=== PATIENT | male | born 1945 | race Caucasian/White ===

== ENCOUNTER → 2020-06-14 14:21 | Outpatient (BNVA) | payer MEDICARE, SELFPAY | PROVIDERS: PCP Internal Medicine; Referring Provider Internal Medicine; Visit Provider Internal Medicine | DX: I48.20 Chronic atrial fibrillation, unspecified (principal); Z95.2 Presence of prosthetic heart valve; Z79.01 Long term (current) use of anticoagulants; Z51.81 Encounter for therapeutic drug level monitoring | CPT/HCPCS: 85610; 99211 ==

== ENCOUNTER → 2020-06-20 09:56 | Outpatient (BNVA) | payer MEDICARE, SELFPAY | PROVIDERS: PCP Internal Medicine; Visit Provider Internal Medicine | DX: I48.20 Chronic atrial fibrillation, unspecified (principal); Z95.2 Presence of prosthetic heart valve; Z51.81 Encounter for therapeutic drug level monitoring; Z79.01 Long term (current) use of anticoagulants | CPT/HCPCS: 85610; 99211 ==

== ENCOUNTER → 2020-06-30 10:16 | Outpatient (BNVA) | payer MEDICARE, SELFPAY | PROVIDERS: PCP Internal Medicine; Visit Provider Internal Medicine | DX: I48.20 Chronic atrial fibrillation, unspecified (principal); Z95.2 Presence of prosthetic heart valve; Z51.81 Encounter for therapeutic drug level monitoring; Z79.01 Long term (current) use of anticoagulants | CPT/HCPCS: 85610; 99211 ==

== ENCOUNTER → 2020-07-07 10:12 | Outpatient (BNVA) | payer MEDICARE, SELFPAY | PROVIDERS: PCP Internal Medicine; Visit Provider Internal Medicine | DX: I48.20 Chronic atrial fibrillation, unspecified (principal); Z95.2 Presence of prosthetic heart valve; Z51.81 Encounter for therapeutic drug level monitoring; Z79.01 Long term (current) use of anticoagulants | CPT/HCPCS: 85610; 99211 ==

== ENCOUNTER → 2020-07-12 10:30 | Outpatient (BNVA) | payer MEDICARE, SELFPAY | PROVIDERS: PCP Internal Medicine; Visit Provider Internal Medicine | DX: I48.20 Chronic atrial fibrillation, unspecified (principal); Z95.2 Presence of prosthetic heart valve; Z51.81 Encounter for therapeutic drug level monitoring; Z79.01 Long term (current) use of anticoagulants | CPT/HCPCS: 85610; 99211 ==

== ENCOUNTER → 2020-07-27 14:01 | Outpatient (BNVA) | payer MEDICARE, SELFPAY | PROVIDERS: PCP Internal Medicine; Visit Provider Internal Medicine | DX: I48.20 Chronic atrial fibrillation, unspecified (principal); Z51.81 Encounter for therapeutic drug level monitoring; Z79.01 Long term (current) use of anticoagulants | CPT/HCPCS: 85610; 99211 ==

== ENCOUNTER 2020-08-20 11:26 | Inpatient (IN) | payer MEDICARE, OTHER, SELFPAY ==
[2020-08-20 11:29] VITALS: BP 145/90; PULSE 103; RESP 20; TEMP 36.6; O2SAT 100; BMI 23.9
[2020-08-20 12:00] VITALS: BP 138/82; PULSE 98; RESP 18; TEMP 36.6; O2SAT 99
--- NOTE | 2020-08-20 12:07 | PC.NURSE ---
PRESENTS WITH WORSENED CHRONIC WOUND ON LLE. DIABETIC. RECEIVING CARE FROM [facility]. PEDAL PULSES + WITH DOPPLER BILAT. APPEARS SHORT OF BREATH ON EXERTION. SPO2 ON RA IN LOW 90S. NO AT HOME O2.
--- NOTE | 2020-08-20 12:09 | US_ITS ---
EXAMINATION: US VENOUS ULTRASOUND WITH DOPPLER LOWER EXTREMITY, LEFT CLINICAL INFORMATION: Left leg pain. COMPARISON: None TECHNIQUE: Ultrasound of the deep veins is performed from the hip to the calf with compression sonography and color and pulse Doppler assessment. Spectral analysis with color-flow imaging is performed. FINDINGS: There is normal venous compression and respiratory variation and augmented flow. The visualized common femoral vein, superficial femoral vein, profunda femoral vein, popliteal vein, and the trifurcation region shows no evidence of deep venous thrombosis. There is no significant popliteal fossa cyst. There are a few scattered lymph nodes in the left groin with the largest left groin lymph node measuring 0.85 x 0.80 cm. US/US venous duplex LE LT IMPRESSION: No DVT demonstrated in the left lower extremity. Small left groin lymph nodes. No Ascencio's cyst.
--- NOTE | 2020-08-20 12:11 | XR_ITS ---
EXAMINATION: XR TIBIA AND FIBULA, LEFT CLINICAL INFORMATION: Infection. Rule out osteomyelitis. COMPARISON: None TECHNIQUE: AP and lateral views of the left tibia and fibula were obtained. FINDINGS: A soft tissue ulcer is noted anteriorly along the distal tibia. No underlying bony abnormality is demonstrated to suggest osteomyelitis. There is extensive vascular calcification. No other abnormality. XR/XR tibia fibula LT 2V IMPRESSION: Soft tissue ulcer in the pretibial region with no bony abnormality demonstrated. Extensive vascular calcification.
--- NOTE | 2020-08-20 12:19 | XR_ITS ---
EXAMINATION: XR CHEST CLINICAL INFORMATION: Shortness of breath. COMPARISON: Chest done on 04/27/2020. TECHNIQUE: Frontal view of the chest was obtained. FINDINGS: Persistent obliteration of the left hemidiaphragm, left lateral CP angle and dense opacification of the left mid to lower lung coffey consistent with stable left-sided pleural parenchymal disease is noted. Patchy airspace disease at right lower lobe of the lung is also noted. The cardiac mediastinal silhouette is enlarged, but stable. Triple lead AICD device is present, appear intact. XR/XR chest 1V IMPRESSION: No significant change since 04/27/2020. The identified persistent left-sided pleural effusion, thickening and underlying nonspecific left lower lobar airspace disease, and patchy airspace disease at right lower lobe of the lung.
--- NOTE | 2020-08-20 12:19 | ECG_ITS ---
Test Reason : LEG PAIN Blood Pressure : / mmHG Vent. Rate : 099 BPM Atrial Rate : 099 BPM P-R Int : 000 ms QRS Dur : 166 ms QT Int : 450 ms P-R-T Axes : 043 -89 078 degrees QTc Int : 577 ms Ventricular-paced rhythm Atrial rhythm is not clear Premature ventricular complexes Abnormal ECG When compared with ECG of 03-MAY-2020 10:28, Vent. rate has increased BY 11 BPM Referred By: Rafael Aguilar Electronically Signed By:SHARI FISHER
[2020-08-20 13:10] LABS: Basophils Percent Auto 0.3 % (0-2); Eosinophils Absolute Auto 0.1 X10*3/uL (0.0-0.4); Hemoglobin 11.7 g/dl (14.0-18.0); Imm Gran Abs Auto 0.01 X10*3/uL (0.00-0.03); Imm Gran Pct Auto 0.2 % (0.0-0.4); Lymphocytes Absolute Auto 0.7 X10*3/uL (1.2-4.9); Lymphocytes Percent Auto 12.1 % (20-40); MANUAL DIFF FLAG NO; Mean Corpuscular HGB Conc 31.6 g/dl (31.0-36.0); Mean Corpuscular Volume 91.6 fL (80-98); Mean Platelet Volume 11.2 fL (9.4-12.4); Monocytes Absolute Auto 0.5 X10*3/uL (0.1-1.2); Monocytes Percent Auto 9.1 % (2-11); Neutrophils Absolute Auto 4.5 X10*3/uL (2.0-8.3); Neutrophils Percent Auto 77.3 % (45-73); Platelet Count 220 X10*3/uL (160-400); Red Blood Count 4.04 X10*6/uL (4.60-5.80); Red Cell Distribution Width 15.3 % (11.0-16.0); White Blood Count 5.8 X10*3/uL (4.8-10.8)
[2020-08-20 13:28] LABS: Lactic Acid 0.9 mmol/L (0.5-2.0)
--- NOTE | 2020-08-20 13:34 | ED.SKABFB ---
HPI - Skin/Abscess/Foreign Bdy General Chief complaint: Skin/Abscess/Foreign Body Stated complaint: ?leg infection Time Seen by Provider: 08/20/20 12:06 History of Present Illness HPI narrative: Patient complains of wound in left lower leg which has been getting red and painful with discharge from the wound over several weeks, no fever no chills, it is difficult to ambulate as it hurts, pain is mostly in front of the leg, there is no calf swelling A visitor to the house noticed the redness and advised he goes to the ER so that is the reason for the visit today He has multiple comorbidities including renal insufficiency diabetes heart disease including valve repair for which he is on Coumadin and pacemaker Related Data Previous Rx's Medication Instructions Recorded blood sugar diagnostic #10 ea 06/09/20 blood sugar diagnostic #10 ea 06/09/20 lancets 28 gauge #100 ea 06/09/20 warfarin 3 mg tablet 3 mg PO DAILY #90 tab 06/14/20 warfarin 4 mg tablet 4 mg PO DAILY #90 tab 06/14/20 tamsulosin 0.4 mg capsule 0.4 mg PO DAILY 90 Days #90 cap 07/21/20 oxycodone-acetaminophen [Percocet] 1 tab PO Q8H PRN #1 tab 08/20/20 Allergies Allergy/AdvReac Type Severity Reaction Status Date / Time No Known Allergies Allergy Verified 07/12/20 10:31 [No Known Allergies*] none Allergy Unknown N/A Uncoded 06/30/20 10:20 Review of Systems Review of Systems: Positive for left leg redness and pain Negatives are no fever no chills no dizziness no headache no neck pain no chest pain no abdominal pain no numbness no weakness, no dysuria, no problems with urination [facility] Past Medical History Attestation statement: The following information was validated with the patient. [facility] Narrative: Patient has renal insufficiency, diabetes, heart disease, takes Coumadin for an artificial valve, last INR was 2 or 3 weeks ago Medical History (Updated 08/20/20 @ 15:39 by [place] Gunn) Blind left eye COVID-19 Diabetes HTN (hypertension) Kidney stone MD (myocardial infarction) Pacemaker Social History Social History Smoking Status: Former smoker Use of substances other than those prescribed or required for medical reasons: No Advance Directives: No Advance Directives Information Provided: Yes Physical Exam Vital Signs: Vital Signs: Last Vital Signs Temp 98.5 F 08/20/20 14:00 Pulse 82 08/20/20 14:00 Resp 20 08/20/20 14:00 BP 141/71 H 08/20/20 14:00 Pulse Ox 95 08/20/20 14:00 Body Mass Index 23.9 Patient is resting comfortably, no acute distress, cooperative and come The head is normocephalic atraumatic The neck is supple The chest is clear to auscultation bilaterally with symmetric equal breath sounds The heart had no obvious murmurs The abdomen was soft and nontender Extremities the left lower extremity pretibial area had some small wounds that are discharging yellowish fluid but no fluctuance no abscess these are surrounded by redness and scabbing the redness does go to the posterior leg, the ankle in the near not affected and have full range of motion, no evidence of any joint infection, no calf swelling There is mild bilateral pedal edema, pulses were not palpable in either foot but the foot was normal color not cold not white, Doppler was checked and pulses were intact in both feet Neuro no focal deficit Course Course Course Narrative: Left and right foot did not have easily palpable pulses so they were checked with Doppler and both had intact pulses as well as normal color of the foot, not cold, no evidence of ischemic foot Ultrasound was negative for DVT, x-ray did not show osteomyelitis, patient was started on antibiotics, case was discussed with hospitalist chanel and was admitted for IV antibiotics for left leg cellulitis MDM - Skin/Abscess/Foreign Bdy Lab Data Attestation: I reviewed the patient's lab results. Lab results narrative: Result diagrams: 08/20/20 13:04 08/20/20 13:04 Labs: Lab Results 08/20/20 08/20/20 08/20/20 Range/Units 13:04 13:04 13:04 WBC 5.8 (4.8-10.8) X10*3/uL RBC 4.04 L (4.60-5.80) X10*6/uL Hgb 11.7 L (14.0-18.0) g/dl Hct 37.0 L (42-52) % MCV 91.6 (80-98) fL MCH 29.0 (27.0-33.0) pg MCHC 31.6 (31.0-36.0) g/dl RDW 15.3 (11.0-16.0) % Plt Count 220 (160-400) X10*3/uL MPV 11.2 (9.4-12.4) fL Immature Gran % (Auto) 0.2 (0.0-0.4) % Neut % (Auto) 77.3 H (45-73) % Lymph % (Auto) 12.1 L (20-40) % Mcleod % (Auto) 9.1 (2-11) % Eos % (Auto) 1.0 (0-4) % Baso % (Auto) 0.3 (0-2) % Lymph # (Auto) 0.7 L (1.2-4.9) X10*3/uL Mcleod # (Auto) 0.5 (0.1-1.2) X10*3/uL Eos # (Auto) 0.1 (0.0-0.4) X10*3/uL Baso # (Auto) 0.0 (0.0-0.2) X10*3/uL Abs Immat Gran (auto) 0.01 (0.00-0.03) X10*3/uL Absolute Neuts (auto) 4.5 (2.0-8.3) X10*3/uL Absolute Nucleated RBC 0.000 (0.0-0.012) X10*3/uL Nucleated RBC % (auto) 0.0 (0.0-0.2) /100WBC PT 63.1 H (10.8-13.0) SEC INR 5.2 H* (0.9-1.1) APTT 68.4 H* (24.1-38.0) SEC Sodium 137 (135-145) mmol/L Potassium 4.9 (3.3-5.1) mmol/l Chloride 103 (96-108) mmol/L Carbon Dioxide 24 (22-29) mmol/L Anion Gap 15 (12-20) BUN 111 H* (9-16) mg/dL Creatinine 3.21 H (0.5-1.4) mg/dL Estim Creat Clear Calc 16.0 Estimated GFR 19 Random Glucose 417 H* (60-115) mg/dL Lactic Acid (0.5-2.0) mmol/L Calcium 8.0 L (8.4-10.2) mg/dL Total Bilirubin 0.4 (0.0-1.0) mg/dL Direct Bilirubin 0.2 (0.0-0.5) mg/dL AST 24 (5-37) U/L ALT 25 (0-40) U/L Alkaline Phosphatase 151 H (39-117) U/L Total Protein 6.4 L (6.5-8.0) g/dL Albumin 3.3 L (3.5-5.0) g/dL Acetone, Qual Negative (Negative) COVID-19 (KHALIF) (Negative) COVID-19 Clin Com 08/20/20 08/20/20 Range/Units 13:04 13:33 WBC (4.8-10.8) X10*3/uL RBC (4.60-5.80) X10*6/uL Hgb (14.0-18.0) g/dl Hct (42-52) % MCV (80-98) fL MCH (27.0-33.0) pg MCHC (31.0-36.0) g/dl RDW (11.0-16.0) % Plt Count (160-400) X10*3/uL MPV (9.4-12.4) fL Immature Gran % (Auto) (0.0-0.4) % Neut % (Auto) (45-73) % Lymph % (Auto) (20-40) % Mcleod % (Auto) (2-11) % Eos % (Auto) (0-4) % Baso % (Auto) (0-2) % Lymph # (Auto) (1.2-4.9) X10*3/uL Mcleod # (Auto) (0.1-1.2) X10*3/uL Eos # (Auto) (0.0-0.4) X10*3/uL Baso # (Auto) (0.0-0.2) X10*3/uL Abs Immat Gran (auto) (0.00-0.03) X10*3/uL Absolute Neuts (auto) (2.0-8.3) X10*3/uL Absolute Nucleated RBC (0.0-0.012) X10*3/uL Nucleated RBC % (auto) (0.0-0.2) /100WBC PT (10.8-13.0) SEC INR (0.9-1.1) APTT (24.1-38.0) SEC Sodium (135-145) mmol/L Potassium (3.3-5.1) mmol/l Chloride (96-108) mmol/L Carbon Dioxide (22-29) mmol/L Anion Gap (12-20) BUN (9-16) mg/dL Creatinine (0.5-1.4) mg/dL Estim Creat Clear Calc Estimated GFR Random Glucose (60-115) mg/dL Lactic Acid 0.9 (0.5-2.0) mmol/L Calcium (8.4-10.2) mg/dL Total Bilirubin (0.0-1.0) mg/dL Direct Bilirubin (0.0-0.5) mg/dL AST (5-37) U/L ALT (0-40) U/L Alkaline Phosphatase (39-117) U/L Total Protein (6.5-8.0) g/dL Albumin (3.5-5.0) g/dL Acetone, Qual (Negative) COVID-19 (KHALIF) Negative (Negative) COVID-19 Clin Com See Note ECG Data Interpretation: EKG was without acute ischemic change, there was a ventricular paced rhythm rate was 99, QT was 450, QRS duration was 166 millisecond Discharge Plan Discharge Clinical Impression: Cellulitis of left leg Patient Disposition: Admitted As Inpatient Prescriptions: New oxycodone-acetaminophen [Percocet] 5-325 mg tablet 1 tab PO Q8H PRN (Reason: pain) Qty: 1 RF: 0 No Action (DME) Freestyle [employer] Strip See Rx Instructions .ROUTE .MEDSUPPLY Qty: 10 RF: 0 (DME) FreeStyle Lite Strips Strip See Rx Instructions .ROUTE .MEDSUPPLY Qty: 10 RF: 0 (DME) lancets [FreeStyle Lancets] 28 gauge misc See Rx Instructions .ROUTE .MEDSUPPLY Qty: 100 RF: 0 tamsulosin 0.4 mg capsule 0.4 mg PO DAILY 90 Days Qty: 90 RF: 0 warfarin 3 mg tablet 3 mg PO DAILY Qty: 90 RF: 0 warfarin 4 mg tablet 4 mg PO DAILY Qty: 90 RF: 0 Referrals: Physician,Unknown [Primary Care Provider] -
[2020-08-20 13:41] LABS: Alanine Aminotransferase 25 U/L (0-40); Albumin Level 3.3 g/dL (3.5-5.0); Alkaline Phosphatase 151 U/L (39-117); Anion Gap 15 (12-20); Aspartate Amino Transferase 24 U/L (5-37); Bilirubin Direct 0.2 mg/dL (0.0-0.5); Bilirubin Total 0.4 mg/dL (0.0-1.0); Blood Urea Nitrogen 111 mg/dL (9-16); Carbon Dioxide 24 mmol/L (22-29); Chloride 103 mmol/L (96-108); Estimated Glomerular Filt Rate 19; Glucose Random 417 mg/dL (60-115); Potassium 4.9 mmol/l (3.3-5.1); Sodium 137 mmol/L (135-145); Total Protein 6.4 g/dL (6.5-8.0)
[2020-08-20 14:00] VITALS: BP 141/71; PULSE 82; RESP 20; TEMP 36.9; O2SAT 95
[2020-08-20 14:00] LABS: COVID-19 Test Negative (Negative); IDNOW Serial# 9DD0AD1C
[2020-08-20 14:20] LABS: Acetone, serum QL Negative (Negative)
[2020-08-20] MEDS: Piperacillin Sodium/Tazobactam 2.25 GM in 0.9 % Sodium Chloride 50 ML IV (14:46)
[2020-08-20 14:48] LABS: Prothrombin Time 63.1 SEC (10.8-13.0)
[2020-08-20 14:53] LABS: INTERNATIONAL NORM RATIO 5.2 (0.9-1.1)
[2020-08-20 16:00] VITALS: BP 157/88; PULSE 68; RESP 22; TEMP 36.9; O2SAT 96
[2020-08-20 16:16] LABS: Glucose Urine UA 250 MG/DL (NEG); Leukocyte Esterase Urine NEG (NEG); Nitrite Urine NEG (NEG); PH 5.5 (5.0-8.0); Specific Gravity - Urine 1.025 (1.005-1.025); Urine Blood 3+ (NEG); Urine Ketones NEG (NEG); Urine Protein 2+ MG/DL (NEG-TRACE)
[2020-08-20 16:17] LABS: Appearance Urine CLEAR; Color Urine YELLOW
--- NOTE | 2020-08-20 16:32 | PC.NURSE ---
IV LEENA PER MD ZAYAS
[2020-08-20 16:36] LABS: Bacteria Urine 1+ /LPF; RBC Urine 50-75 /HPF (0); UACC CULT YES
--- NOTE | 2020-08-20 16:47 | PM.IMHP ---
History of Present Illness Date of Service: 08/20/20 Chief Complaint: left leg redness This is a 74-year-old male with multiple medical issues who presents to the hospital after being brought in by his family for worsening left leg redness. The patient himself has poor vision and is not the greatest of historians and so history is corroborated for with the help of his family and himself. Patient reportedly has had this left leg wound for quite some time which was being monitored by a visiting RN, but it was noticed by grandson's partner, who is a retired machine repairer that the left leg looked worse and so he brought him to the emergency room. The patient himself denies any discomfort that is new in the leg. He denies any fevers or chills. He denies any nausea/vomiting/diarrhea. He denies any chest pain. I spoke with the patient's daughter, Taina @ [phone] who reports that she is the HCP and that the patient is a full code. Review of Systems Review of Systems: General - denies fevers or chills, denies weakness or fatigue HEENT -denies blurred vision, denies headache, denies sore throat Cardiovascular - denies chest pain or palpitations, denies edema Respiratory - denies shortness of breath, coughing, wheezing Gastrointestinal - denies abdominal pain, nausea, vomiting, diarrhea - denies flank pain, denies dysuria, denies frequency or urgency Musculoskeletal - denies back pain, denies hip pain, denies knee pain, denies shoulder pain Neurological - denies any focal weakness or numbness Skin - erythema of the L leg Psychiatric - denies any suicidal ideation, hallucinations, homicidal ideation Endocrinology - denies intolerance to hot / cold temperatures [facility] Medical History (Updated 08/20/20 @ 17:11 by Juan Lang MD) Atrial flutter Blind left eye CAD (coronary artery disease) 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 mellitus Combined systolic and diastolic heart failure Complete heart block COVID-19 Diabetes Dyslipidemia HTN (hypertension) Kidney stone IN (myocardial infarction) Pacemaker Family History (Updated 08/20/20 @ 16:56 by Juan Lang MD) Other Heart disease Surgical History (Updated 08/20/20 @ 17:11 by Juan Lang MD) AICD (automatic cardioverter/defibrillator) present H/O mechanical aortic valve replacement Hx of CABG Social History Smoking Status: Former smoker Use of substances other than those prescribed or required for medical reasons: No Advance Directives: No Advance Directives Information Provided: Yes Meds Allergies Allergy/AdvReac Type Severity Reaction Status Date / Time No Known Allergies Allergy Verified 07/12/20 10:31 [No Known Allergies*] none Allergy Unknown N/A Uncoded 06/30/20 10:20 Physical Exam Vital Signs and Narrative: Vital Signs: Last Vital Signs Temp 98.5 F 08/20/20 16:00 Pulse 68 08/20/20 16:00 Resp 22 H 08/20/20 16:00 BP 157/88 H 08/20/20 16:00 Pulse Ox 96 08/20/20 16:00 Body Mass Index 23.9 Const: Other: Constitutional - Awake and Alert, No apparent distress, unkempt Eyes - PERRLA, EOMI Cardiovascular - RRR Respiratory - Normal lung expansion, Normal respiratory effort, No respiratory distress, CTA bilaterally Gastrointestinal - NT / ND; +BS; No rebound or guarding - No CVA tenderness Extremities - no calf tenderness bilaterally, no swelling Musculoskeletal - Normal inspection, normal ROM Neurological - Alert & oriented x3, No focal deficit Psychological - Appropriate affect Skin: Other: Results Labs CBC and Chem 7: 08/20/20 13:04 08/20/20 13:04 Labs: Laboratory Results - last 24 hr 08/20/20 08/20/20 08/20/20 13:04 13:04 13:04 MCV 91.6 MCH 29.0 MCHC 31.6 RDW 15.3 Plt Count 220 MPV 11.2 Immature Gran % (Auto) 0.2 Neut % (Auto) 77.3 H Lymph % (Auto) 12.1 L [place] % (Auto) 9.1 Eos % (Auto) 1.0 Baso % (Auto) 0.3 Lymph # (Auto) 0.7 L [place] # (Auto) 0.5 Eos # (Auto) 0.1 Baso # (Auto) 0.0 Abs Immat Gran (auto) 0.01 Absolute Neuts (auto) 4.5 Absolute Nucleated RBC 0.000 Nucleated RBC % (auto) 0.0 PT 63.1 H INR 5.2 H* APTT 68.4 H* Anion Gap 15 Estim Creat Clear Calc 16.0 Estimated GFR 19 Random Glucose 417 H* Lactic Acid Calcium 8.0 L Total Bilirubin 0.4 Direct Bilirubin 0.2 AST 24 ALT 25 Alkaline Phosphatase 151 H Total Protein 6.4 L Albumin 3.3 L Urine Color Urine Appearance Urine pH Ur Specific Kila Urine Protein Urine Glucose (UA) Urine Ketones Urine Blood Urine Nitrite Ur Leukocyte Esterase Urine RBC Urine WBC Ur Squamous Epith Cells Urine Bacteria Hyaline Casts Granular Casts Acetone, Qual Negative COVID-19 (KHALIF) COVID-19 Clin Com 08/20/20 08/20/20 08/20/20 13:04 13:33 16:07 MCV MCH MCHC RDW Plt Count MPV Immature Gran % (Auto) Neut % (Auto) Lymph % (Auto) [place] % (Auto) Eos % (Auto) Baso % (Auto) Lymph # (Auto) [place] # (Auto) Eos # (Auto) Baso # (Auto) Abs Immat Gran (auto) Absolute Neuts (auto) Absolute Nucleated RBC Nucleated RBC % (auto) PT INR APTT Anion Gap Estim Creat Clear Calc Estimated GFR Random Glucose Lactic Acid 0.9 Calcium Total Bilirubin Direct Bilirubin AST ALT Alkaline Phosphatase Total Protein Albumin Urine Color YELLOW Urine Appearance CLEAR Urine pH 5.5 Ur Specific Kila 1.025 Urine Protein 2+ H Urine Glucose (UA) 250 H Urine Ketones NEG Urine Blood 3+ H Urine Nitrite NEG Ur Leukocyte Esterase NEG Urine RBC 50-75 H Urine WBC 5-9 H Ur Squamous Epith Cells NONE Urine Bacteria 1+ Hyaline Casts 1-4 Granular Casts 5-9 Acetone, Qual COVID-19 (KHALIF) Negative COVID-19 Clin Com See Note Imaging Radiologist's Impressions: Impressions Venous Duplex 08/20/20 12:09 IMPRESSION: No DVT demonstrated in the left lower extremity. Small left groin lymph nodes. No Ascencio's cyst. Tibia/Fibula X-Ray 08/20/20 12:11 IMPRESSION: Soft tissue ulcer in the pretibial region with no bony abnormality demonstrated. Extensive vascular calcification. Chest X-Ray 08/20/20 12:19 IMPRESSION: No significant change since 04/27/2020. The identified persistent left-sided pleural effusion, thickening and underlying nonspecific left lower lobar airspace disease, and patchy airspace disease at right lower lobe of the lung. Assessment and Plan (1) Cellulitis of left leg: Status: Acute This is a 74-year-old male with multiple medical issues who presents to the hospital brought in by his family after they noticed worsening of his left leg erythema. He is admitted for further workup. 1. Left lower extremity chronic wound with minor surrounding cellulitis given zosyn in the ED, vancomyin ordered -- not needed at this time use doxy given advanced CKD and no evidence of sepsis at this time Doxy 100mg IV BID wound care consult 2. SHELBIE on CKD, stage 4 suspect pre-renal will give gentle hydration over night and recheck labs in the AM 3. Supratherapeutic INR, mechanical aortic valve hold coumadin check INR tomorrow 4. Hyperglycemia, uncontrolled DM unclear what meds the patient is one will need to call his pharmacy tomorrow as the family does not know either (d/w the daughter) 5. Moderate Protein Calorie malnurtion nutrition consult 6. History of CHF, diastolic/systolic gentle hydration Full Code (per daughter) Daughter reports she is HCP
[2020-08-20] MEDS: Doxycycline Hyclate 100 MG in 0.9 % Sodium Chloride 250 ML 166.67 MG IV (18:43)
[2020-08-20 19:05] LABS: Glucose, Whole Blood 342 mg/dL (60-115)
--- NOTE | 2020-08-20 19:08 | PC.NURSE ---
PT RESTING COMFORTABLY IN STRETCHER, AWAITING BED ASSIGNMENT ATTEMPTED COMPLETION OF MED REC, PT UNABLE TO CONFIRM CURRENT RXS. CALLED SISTER ALLAN [phone], ALSO UNABLE TO PROVIDE.
[2020-08-20 20:53] LABS: Glucose, Whole Blood 295 mg/dL (60-115)
[2020-08-20] MEDS: Insulin Lispro 100 UNIT/ML 3 ML VIAL SUBCUT (21:13)
[2020-08-20] MEDS: 0.9 % Sodium Chloride 1,000 ML 80 ML IVCONT (23:11)
--- NOTE | 2020-08-20 23:11 | PC.NURSE ---
Patient medicated per emar as noted. Patient wondering when he is getting a bed. Patient settled in for the night.
[2020-08-20 23:17] VITALS: BP 138/61; PULSE 96; RESP 18; O2SAT 96
[2020-08-21] MEDS: 0.9 % Sodium Chloride Flush 3 ML SYRINGE IVFLUSH (00:43)
[2020-08-21 04:00] VITALS: BP 132/67; PULSE 81; RESP 20; O2SAT 96
[2020-08-21] MEDS: Doxycycline Hyclate 100 MG in 0.9 % Sodium Chloride 250 ML 166.7 MG IV (05:47)
[2020-08-21 06:00] VITALS: BP 143/77; PULSE 91; RESP 15; O2SAT 93
[2020-08-21 06:39] LABS: MANUAL DIFF FLAG NO
[2020-08-21 06:40] LABS: Basophils Percent Auto 0.4 % (0-2); Eosinophils Absolute Auto 0.1 X10*3/uL (0.0-0.4); Eosinophils Percent Auto 1.5 % (0-4); Hematocrit 38.8 % (42-52); Hemoglobin 12.3 g/dl (14.0-18.0); Imm Gran Abs Auto 0.02 X10*3/uL (0.00-0.03); Imm Gran Pct Auto 0.3 % (0.0-0.4); Lymphocytes Absolute Auto 0.9 X10*3/uL (1.2-4.9); Lymphocytes Percent Auto 13.1 % (20-40); Mean Corpuscular HGB Conc 31.7 g/dl (31.0-36.0); Mean Corpuscular Volume 91.5 fL (80-98); Mean Platelet Volume 10.6 fL (9.4-12.4); Monocytes Absolute Auto 0.8 X10*3/uL (0.1-1.2); Neutrophils Absolute Auto 5.1 X10*3/uL (2.0-8.3); Neutrophils Percent Auto 73.7 % (45-73); Platelet Count 226 X10*3/uL (160-400); Red Blood Count 4.24 X10*6/uL (4.60-5.80); Red Cell Distribution Width 15.3 % (11.0-16.0); White Blood Count 6.9 X10*3/uL (4.8-10.8)
[2020-08-21 07:06] LABS: INTERNATIONAL NORM RATIO 4.3 (0.9-1.1); Prothrombin Time 52.4 SEC (10.8-13.0)
[2020-08-21 07:10] LABS: Anion Gap 15 (12-20); Blood Urea Nitrogen 108 mg/dL (9-16); Calcium 7.9 mg/dL (8.4-10.2); Carbon Dioxide 21 mmol/L (22-29); Chloride 106 mmol/L (96-108); Creatinine Clr Calc Pharmacy 16.8; Estimated Glomerular Filt Rate 20; Glucose Random 240 mg/dL (60-115); Potassium 4.5 mmol/l (3.3-5.1); Sodium 137 mmol/L (135-145)
[2020-08-21] MEDS: Insulin Lispro 100 UNIT/ML 3 ML VIAL SUBCUT ×3 (07:37→21:48)
--- NOTE | 2020-08-21 07:53 | PC.NURSE ---
report taken from tenisha rodriguez pt sitting up in bed, mainly concerned about food and whether its cold or not. pt has iv dressing soiled and falling off, pt tangled in linens and wires, medicated per emar, eating breakfast, ambulated to commode on own. pt is impulsive and is not patient for staff assistance.
[2020-08-21 08:01] LABS: Glucose, Whole Blood 206 mg/dL (60-115)
[2020-08-21] MEDS: 0.9 % Sodium Chloride 1,000 ML 80 ML IVCONT ×2 (09:02→19:23)
[2020-08-21 11:20] VITALS: TEMP 36.6
--- NOTE | 2020-08-21 14:58 | HO.PM.IMPN ---
Subjective Subjective Date of Service: 08/21/20 Interval History: seen and examined feeling better denies leg pain ROS General - no fevers or chills Cardiovascular - no chest pain Respiratory - no shortness of breath or cough Abdominal- no abdominal pain, nausea, vomiting, diarrhea Physical Exam Vital Signs: Vital Signs: Last Vital Signs Temp 97.8 F 08/21/20 11:20 Pulse 91 08/21/20 06:00 Resp 15 08/21/20 06:00 BP 143/77 H 08/21/20 06:00 Pulse Ox 93 08/21/20 06:00 Body Mass Index 23.9 Const: Other: Constitutional - Awake and Alert, No apparent distress, unkempt Eyes - PERRLA, EOMI Cardiovascular - RRR Respiratory - Normal lung expansion, Normal respiratory effort, No respiratory distress, CTA bilaterally Gastrointestinal - NT / ND; +BS; No rebound or guarding - No CVA tenderness Extremities - no calf tenderness bilaterally, no swelling Musculoskeletal - Normal inspection, normal ROM Neurological - Alert & oriented x3, No focal deficit Psychological - Appropriate affect Objective Data Current Medications Generic Name Dose Route Start Last Admin Trade Name Freq PRN Reason Stop Dose Admin Acetaminophen 650 mg 08/20/20 20:23 Acetaminophen 325 Mg Tablet PO Q6H PRN Pain, Mild (Pain Scale 1-3) Doxycycline Hyclate 100 mg/ 250 mls @ 166.67 mls/hr 08/20/20 18:00 08/21/20 07:37 Sodium Chloride IV Infused Q12H MARCE Infusion Sodium Chloride 1,000 mls @ 80 mls/hr 08/20/20 20:23 08/21/20 09:02 Ns IVCONT 80 mls/hr .[id number] MARCE Administration Insulin Human Lispro 0 unit 08/20/20 21:00 08/21/20 13:11 Insulin Lispro 100 Unit/Ml 3 Ml Vial SUBCUT 2 unit QIDACHS MARCE Administration Protocol Ondansetron HCl 4 mg 08/20/20 20:23 Ondansetron Hcl 4 Mg/2 Ml Vial IVPUSH Q8H PRN Nausea and Vomiting Pharmacy Consult 1 each 08/20/20 14:11 Consult Rx Vancomycin Dosing MISCELLANE DAILY PRN Consult order Sodium Chloride 3 ml 08/21/20 00:00 08/21/20 07:38 0.9 % Sodium Chloride Flush 3 Ml Syringe IVFLUSH Not Given QSHIFT MARCE Labs CBC & Chem 7: 08/21/20 06:33 08/21/20 06:33 Microbiology Microbiology Results: Microbiology 08/20/20 15:24 Leg Left Gram Stain - Final 08/20/20 15:24 Leg Left Routine Culture - Preliminary Staphylococcus aureus 08/20/20 16:38 Urine clean catch - Clean Catch Midstream Urine Culture - Preliminary No growth to date. Assessment and Plan (1) Cellulitis of left leg: Status: Acute Assessment and Plan: This is a 74-year-old male with multiple medical issues who presents to the hospital brought in by his family after they noticed worsening of his left leg erythema. He is admitted for further workup. 1. Left lower extremity chronic wound with minor surrounding cellulitis cellulitis improving await wound care consult continue doxycyline 2. SHELBIE on CKD, stage 4 improving with gentle hydration continue until tomorrow and reasess 3. Supratherapeutic INR, mechanical aortic valve INR downtrending hold coumadin today anticipate restarting it by tomorrow 4. Hyperglycemia, uncontrolled DM not on any meds at home apparently check a1c 5. Moderate Protein Calorie malnurtion nutrition consult supplements 6. History of CHF, diastolic/systolic coreg hold bumex reassess tomorrow Full Code (per daughter) Daughter reports she is HCP DVT ppt, coumadin
[2020-08-21 15:50] LABS: Glucose, Whole Blood 192 mg/dL (60-115)
[2020-08-21 17:20] LABS: Estimated Average Glucose 286 mg/dL; Hemoglobin A1c % 11.6 %
--- NOTE | 2020-08-21 17:25 | PC.NURSE ---
pt moved to [facility], awaiting bed assignment.
--- NOTE | 2020-08-21 17:29 | PC.NURSE ---
first call for report unsuccessful
--- NOTE | 2020-08-21 18:19 | PC.NURSE ---
report given to s3 jennifer sullivan
[2020-08-21] MEDS: Doxycycline Hyclate 100 MG in 0.9 % Sodium Chloride 250 ML 166.67 MG IV (19:22)
[2020-08-21 21:28] LABS: Glucose, Whole Blood 156 mg/dL (60-115)
[2020-08-21 21:38] VITALS: BP 141/3; PULSE 80; RESP 19; TEMP 36.6; O2SAT 94
[2020-08-21] MEDS: carvediloL 3.125 MG TABLET PO (21:48)
[2020-08-21 23:32] VITALS: BP 137/72; PULSE 52; RESP 20; TEMP 36.6; O2SAT 94
[2020-08-22] MEDS: Doxycycline Hyclate 100 MG in 0.9 % Sodium Chloride 250 ML 166.67 MG IV (05:49)
[2020-08-22] MEDS: 0.9 % Sodium Chloride 1,000 ML 80 ML IVCONT (05:53)
[2020-08-22 06:56] LABS: INTERNATIONAL NORM RATIO 3.2 (0.9-1.1); Prothrombin Time 38.6 SEC (10.8-13.0)
[2020-08-22 07:30] LABS: Anion Gap 18 (12-20); Blood Urea Nitrogen 105 mg/dL (9-16); Calcium 7.7 mg/dL (8.4-10.2); Carbon Dioxide 18 mmol/L (22-29); Chloride 109 mmol/L (96-108); Creatinine Clr Calc Pharmacy 17.5; Estimated Glomerular Filt Rate 21; Glucose Random 95 mg/dL (60-115); Potassium 4.7 mmol/l (3.3-5.1); Sodium 140 mmol/L (135-145)
[2020-08-22 07:35] VITALS: BP 153/80; PULSE 86; RESP 18; TEMP 36.1; O2SAT 98
[2020-08-22 07:45] LABS: Glucose, Whole Blood 84 mg/dL (60-115)
[2020-08-22] MEDS: Tamsulosin HCL 0.4 MG CAPSULE PO (07:45)
[2020-08-22] MEDS: Atorvastatin Calcium 80 MG TABLET PO (07:45)
[2020-08-22 07:46] VITALS: BP 153/80; PULSE 86
[2020-08-22] MEDS: carvediloL 3.125 MG TABLET PO (07:46)
--- NOTE | 2020-08-22 08:38 | HO.WOUNDCONS ---
History of Present Illness Data of Consult Service Date: 08/22/20 Requesting physician: Juan Lang Primary Care Provider: Unknown Physician HPI Reason for consult: left leg wound 74-year-old male without clear history of chronic wound care. Left leg wound present, anterior and posterior about the calf, times months. Became reddened and sought emergency treatment. On doxycycline by hospital staff. History of CAD, CKD4, CHF. Also has had cellulitis of this left lower extremity in the past. Arterial studies do not appear to be his dorsally completed. Some pain. No fever. 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 Complete heart block COVID-19 Diabetes Dyslipidemia HTN (hypertension) Kidney stone [place] (myocardial infarction) Pacemaker Family History (Updated 08/20/20 @ 16:56 by Juan Lang MD) Other Heart disease Surgical History (Updated 08/20/20 @ 17:11 by Juan Lang MD) AICD (automatic cardioverter/defibrillator) present H/O mechanical aortic valve replacement Hx of CABG Social History Household Members: Family Housing: House Do you presently have visiting nurse or other home services: No Smoking Status: Former smoker Use of substances other than those prescribed or required for medical reasons: No Currently Displaying Signs/Symptoms of Drug Intoxication Withdrawal: No Have you been hit, kicked, punched, or otherwise hurt by someone within the past year? If so, by whom?: No Do you feel safe in your current relationship?: No Current Relationship Is there a partner from a previous relationship who is making you feel unsafe now?: No Are you made to feel afraid or neglected: No Advance Directives: No Advance Directives Information Provided: Yes Do you have thoughts of harming others: None Do you have a plan to hurt others: No Plan Recently lost weight without trying: No Meds Allergies Allergy/AdvReac Type Severity Reaction Status Date / Time No Known Allergies Allergy Verified 07/12/20 10:31 [No Known Allergies*] none Allergy Unknown N/A Uncoded 06/30/20 10:20 Home Medications Medication Instructions Recorded Confirmed Type atorvastatin 1 tab PO DAILY 08/20/20 08/20/20 History bumetanide 1 tab PO DAILY 08/20/20 08/20/20 History carvedilol 1 tab PO BID 08/20/20 08/20/20 History tamsulosin 1 cap PO DAILY 08/20/20 08/20/20 History warfarin 1 tab PO DAILY 08/20/20 08/20/20 History Physical Exam Vital Signs and Narrative: Vital Signs: Last Vital Signs Temp 97.0 F 08/22/20 07:35 Pulse 86 08/22/20 07:46 Resp 18 08/22/20 07:35 BP 153/80 H 08/22/20 07:46 Pulse Ox 98 08/22/20 07:35 Body Mass Index 23.9 Pleasant, cooperative no acute distress. Vital signs are stable. Respirations are nonlabored. No diaphoresis. Distal pulses are not palpable at PT/DP another there. Doppler signals are noted in the record of this hospitalization. Anterior santos wound is laden adherent debris. Opening appears to be partial thickness. An estimated 1 cm squared of open wound anteriorly, however debridement would be required for full measurement and depth assessment. Posterior calf wound 2 cm squared, roughly. Surrounding erythema and edema suggest active cellulitis. Moderate warmth. No edema the lower extremity. Leg appears slightly atrophic. Results Labs CBC and Chem 7: 08/21/20 06:33 08/22/20 05:53 Labs: Laboratory Results - last 24 hr 08/21/20 08/21/20 08/21/20 06:42 13:01 21:24 PT INR Anion Gap Estim Creat Clear Calc Estimated GFR POC Glucose 192 H 156 H Random Glucose Estimat Average Glucose 286 Hemoglobin A1c % 11.6 Calcium 08/22/20 08/22/20 08/22/20 05:53 05:53 07:37 PT 38.6 H D INR 3.2 H Anion Gap 18 Estim Creat Clear Calc 17.5 Estimated GFR 21 POC Glucose 84 Random Glucose 95 D Estimat Average Glucose Hemoglobin A1c % Calcium 7.7 L Assessment and Plan (1) Cellulitis of left leg: Start date: 08/22/20 Problem details: With open wounds Status: Acute Culture predominantly showing pencillin resistant staph for which doxycyline appears appropriate, along with CKD4 history. XR not showing bone involvement. Consider outpatient arterial studies to support wound healing once infection is completely cleared. In the meantime, topical TRIAD cream twice daily applied liberally and circumferentially to the wounds, covered with DCD would help loosen adherent debris and support healing. Thank you for allowing us to participate in your patient's care. (2) 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 mellitus: Status: Acute
--- NOTE | 2020-08-22 09:03 | P.CDIC_ITS ---
CDI Concurrent Query Service Date: 08/31/20 Documentation Clarification: Please clarify if you are treating a proba ble/suspected/likely or confirmed: Acute Cellulitis left leg due to Diabetes Mellitus Acute Cellulitis left leg not due to Diabetes Mellitus Provider Response: Other Other Diagnosis: cellulitis due to diabetes PLEASE DO NOT DELETE/MODIFY EXISTING CONTENT Additional information is needed in order to code to the highest accuracy and appropriate Severity of Illness (SOI). Please clarify the information noted below in your progress notes and discharge summary. Risk Factors/Clinical Indicators/Treatments 74 year old male admitted with left lower leg Acute Cellulitis PMH: Diabetes Mellitus, HTN, NC, CAD, CHF, Atrial Flutter, CKD4 Wound consult pending CDS: Kristie Spicer RN Contact Number: [phone] Please Review the information above and exercise your independent professional judgment in responding to the query. If you concur, pleas document in the PROGRESS NOTES and DISCHARGE SUMMARY. If you do not agree with the query, please document in the query above. THIS QUERY IS PART OF THE PERMANENT MEDICAL RECORD
[2020-08-22 10:06] VITALS: BMI 23.9
--- NOTE | 2020-08-22 10:10 | MHC.CLN ---
RE: CONSULT RECOMMEND 1500DM 2GM NA DIET R/T DX DM AND CAD PT TAKES NO DM MEDS AT HOME NOTED AIC 11.6% WILL EDUCATE ON BS CONTROL AND WOUND HEALING-SEE TEACHING RECORD WILL START JENNIFER AND GLUCERNA TO SUPPORT WOUND HEALING SEE ALSO CLINICAL NUTRITION ASSESSMENT
--- NOTE | 2020-08-22 10:20 | MHC.CM.PN ---
pt is active with [facility] will have own transportaion home..hcp on file..?need for pt eval prior to dc
[2020-08-22 11:01] VITALS: BP 134/69; PULSE 67; RESP 18; TEMP 36.3; O2SAT 94
[2020-08-22 11:42] LABS: Glucose, Whole Blood 109 mg/dL (60-115)
--- NOTE | 2020-08-22 12:58 | MHC.CM.PN ---
spoke with nasir bautista [address] [place] [address] who reports that her sister lives upstairs from pt in a 2 family she will contact her sister and have her call us garfield perez phone is [phone] ,gave number to dr cedillo as well
--- NOTE | 2020-08-22 13:43 | P.DS_ITS ---
DS: Providers Provider Date of admission: 08/20/20 16:33 Primary care physician: Unknown Physician Consults: 08/20/20 16:34 Consult to Wound Care Provider Routine Consulting Provider: [facility] Wound Care Management Reason for consultation: left leg wound DS: Diagnosis Discharge Diagnosis (1) Cellulitis of left leg: Status: Acute (2) 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 mellitus: Status: Acute DS: Medications Discharge Medications Home Medications: Home Medications Medication Instructions Recorded Confirmed atorvastatin 1 tab PO DAILY 08/20/20 08/20/20 bumetanide 1 tab PO DAILY 08/20/20 08/20/20 carvedilol 1 tab PO BID 08/20/20 08/20/20 tamsulosin 1 cap PO DAILY 08/20/20 08/20/20 warfarin 1 tab PO DAILY 08/20/20 08/20/20 Previous Rx's Medication Instructions Recorded blood sugar diagnostic #10 ea 06/09/20 lancets 28 gauge #100 ea 06/09/20 oxycodone-acetaminophen [Percocet] 1 tab PO Q8H PRN #1 tab 08/20/20 doxycycline hyclate 100 mg PO BID #14 cap 08/22/20 insulin lispro [Humalog U-100 1 sliding scale dose SUBCUT 08/22/20 Insulin] QIDACHS #10 ml MDD 20 units daily DS: Summary Hospital Course Hospital Course: Hospital course Chief Complaint: left leg redness This is a 74-year-old male with multiple medical issues who presents to the hospital after being brought in by his family for worsening left leg redness. The patient himself has poor vision and is not the greatest of historians and so history is corroborated for with the help of his family and himself. Patient reportedly has had this left leg wound for quite some time which was being monitored by a visiting RN, but it was noticed by grandson's partner, who is a retired production pattern maker that the left leg looked worse and so he brought him to the emergency room. The patient himself denies any discomfort that is new in the leg. He denies any fevers or chills. He denies any nausea/vomiting/diarrhea. He denies any chest pain. 74-year-old male with multiple medical issues who presents to the hospital brought in by his family after they noticed worsening of his left leg erythema. 1. Left lower extremity chronic wound with minor surrounding cellulitis due to diabetes mellitus uncontrolled, patient responded well to doxycycline to seen by wound care they recommended treatment with TRIAD covered with DSD, patient has VNA services at home 2. SHELBIE on CKD, stage 4 Kidney function close to baseline recommend continued close outpatient renal follow-up 3. Supratherapeutic INR, mechanical aortic valve INR 3.2 this a.m. will continue to hold Coumadin today recommend to check PT INR at a.m. and resume Coumadin once INR below 3 and to have close PT INR follow-up while on antibiotic 4. Hyperglycemia, uncontrolled DM hemoglobin A1c greater than 11 patient not on insulin is spoke with patient's daughter Taina and informed her about patient's high blood sugars she will see patient's primary care physician patient was scheduled to be on insulin but has not yet started patient being discharged on insulin sliding scale 5. Moderate Protein Calorie malnurtion Recommend protein supplement 6. History of CHF, diastolic/systolic Resume home medication including Bumex and Coreg and have close follow-up with Nephrology and PCP spoke with the patient's daughter, Taina @ [phone] who is the HCP informed her about patient's multiple issues including requirement for close PT INR follow-up elevated blood sugars and chronic kidney disease she is aware of all these issues and willing to aggressively participate in his care patient has VNA services at home recommended to have PT INR monitored by VNA as well as renal function and to start insulin treatment. Time Spent with Patient Time attestation: Total time spent providing and/or coordinating discharge services: Physical Exam Vital Signs: Vital Signs: Last Vital Signs Temp 97.3 F 08/22/20 11:01 Pulse 67 08/22/20 11:01 Resp 18 08/22/20 11:01 BP 134/69 08/22/20 11:01 Pulse Ox 94 08/22/20 11:01 Body Mass Index 23.9 Constitutional - Awake and Alert, No apparent distress Neck is supple Cardiovascular - RRR Respiratory -clear, No respiratory distress Gastrointestinal - soft nontender bowel sounds audible Extremities - redness and swelling left lower extremities improving, no drainage, superficial abrasion/wound looking better. Neurological - Alert & oriented x3, No focal deficit Psychological - Appropriate affect DS: Data Data Completed and Pending Labs on day of discharge: Laboratory Last Values WBC 6.9 X10*3/uL (4.8-10.8) 08/21/20 06:33 RBC 4.24 X10*6/uL (4.60-5.80) L 08/21/20 06:33 Hgb 12.3 g/dl (14.0-18.0) L 08/21/20 06:33 Hct 38.8 % (42-52) L 08/21/20 06:33 MCV 91.5 fL (80-98) 08/21/20 06:33 MCH 29.0 pg (27.0-33.0) 08/21/20 06:33 MCHC 31.7 g/dl (31.0-36.0) 08/21/20 06:33 RDW 15.3 % (11.0-16.0) 08/21/20 06:33 Plt Count 226 X10*3/uL (160-400) 08/21/20 06:33 MPV 10.6 fL (9.4-12.4) 08/21/20 06:33 Immature Gran % (Auto) 0.3 % (0.0-0.4) 08/21/20 06:33 Neut % (Auto) 73.7 % (45-73) H 08/21/20 06:33 Lymph % (Auto) 13.1 % (20-40) L 08/21/20 06:33 [place] % (Auto) 11.0 % (2-11) 08/21/20 06:33 Eos % (Auto) 1.5 % (0-4) 08/21/20 06:33 Baso % (Auto) 0.4 % (0-2) 08/21/20 06:33 Lymph # (Auto) 0.9 X10*3/uL (1.2-4.9) L 08/21/20 06:33 [place] # (Auto) 0.8 X10*3/uL (0.1-1.2) 08/21/20 06:33 Eos # (Auto) 0.1 X10*3/uL (0.0-0.4) 08/21/20 06:33 Baso # (Auto) 0.0 X10*3/uL (0.0-0.2) 08/21/20 06:33 Abs Immat Gran (auto) 0.02 X10*3/uL (0.00-0.03) 08/21/20 06:33 Absolute Neuts (auto) 5.1 X10*3/uL (2.0-8.3) 08/21/20 06:33 Absolute Nucleated RBC 0.000 X10*3/uL (0.0-0.012) 08/21/20 06:33 Nucleated RBC % (auto) 0.0 /100WBC (0.0-0.2) 08/21/20 06:33 PT 38.6 SEC (10.8-13.0) H D 08/22/20 05:53 INR 3.2 (0.9-1.1) H 08/22/20 05:53 APTT 68.4 SEC (24.1-38.0) H* 08/20/20 13:04 Sodium 140 mmol/L (135-145) 08/22/20 05:53 Potassium 4.7 mmol/l (3.3-5.1) 08/22/20 05:53 Chloride 109 mmol/L (96-108) H 08/22/20 05:53 Carbon Dioxide 18 mmol/L (22-29) L 08/22/20 05:53 Anion Gap 18 (12-20) 08/22/20 05:53 BUN 105 mg/dL (9-16) H* 08/22/20 05:53 Creatinine 2.93 mg/dL (0.5-1.4) H 08/22/20 05:53 Estim Creat Clear Calc 17.5 08/22/20 05:53 Estimated GFR 21 08/22/20 05:53 POC Glucose 109 mg/dL (60-115) 08/22/20 11:04 Random Glucose 95 mg/dL (60-115) D 08/22/20 05:53 Estimat Average Glucose 286 mg/dL 08/21/20 06:42 Hemoglobin A1c % 11.6 % 08/21/20 06:42 Lactic Acid 0.9 mmol/L (0.5-2.0) 08/20/20 13:04 Calcium 7.7 mg/dL (8.4-10.2) L 08/22/20 05:53 Total Bilirubin 0.4 mg/dL (0.0-1.0) 08/20/20 13:04 Direct Bilirubin 0.2 mg/dL (0.0-0.5) 08/20/20 13:04 AST 24 U/L (5-37) 08/20/20 13:04 ALT 25 U/L (0-40) 08/20/20 13:04 Alkaline Phosphatase 151 U/L (39-117) H 08/20/20 13:04 Total Protein 6.4 g/dL (6.5-8.0) L 08/20/20 13:04 Albumin 3.3 g/dL (3.5-5.0) L 08/20/20 13:04 Urine Color YELLOW 08/20/20 16:07 Urine Appearance CLEAR 08/20/20 16:07 Urine pH 5.5 (5.0-8.0) 08/20/20 16:07 Ur Specific [place] 1.025 (1.005-1.025) 08/20/20 16:07 Urine Protein 2+ MG/DL (NEG-TRACE) H 08/20/20 16:07 Urine Glucose (UA) 250 MG/DL (NEG) H 08/20/20 16:07 Urine Ketones NEG MG/DL (NEG) 08/20/20 16:07 Urine Blood 3+ (NEG) H 08/20/20 16:07 Urine Nitrite NEG (NEG) 08/20/20 16:07 Ur Leukocyte Esterase NEG (NEG) 08/20/20 16:07 Urine RBC 50-75 /HPF (0) H 08/20/20 16:07 Urine WBC 5-9 /HPF (0-4) H 08/20/20 16:07 Ur Squamous Epith Cells NONE /LPF 08/20/20 16:07 Urine Bacteria 1+ /LPF 08/20/20 16:07 Hyaline Casts 1-4 /LPF 08/20/20 16:07 Granular Casts 5-9 /LPF 08/20/20 16:07 Acetone, Qual Negative (Negative) 08/20/20 13:04 COVID-19 (KHALIF) Negative (Negative) 08/20/20 13:33 COVID-19 Clin Com See Note 08/20/20 13:33 Preliminary micro results at discharge 08/20/20 13:33 Blood Culture - Preliminary Blood - Venous No growth after 24 hours. 08/20/20 13:04 Blood Culture - Preliminary Blood - Venous No growth after 24 hours. Discharge Plan Discharge Patient Disposition: Home Health Service Referrals: [facility] [Outside] Physician,Unknown [Primary Care Provider] - Discharge Medications: New oxycodone-acetaminophen [Percocet] 5-325 mg tablet 1 tab PO Q8H PRN (Reason: pain) Qty: 1 RF: 0 insulin lispro [Humalog U-100 Insulin] 100 unit/mL Solution 1 sliding scale dose subcut QIDACHS MDD 20 units daily Qty: 10 RF: 0 doxycycline hyclate 100 mg capsule 100 mg PO BID Qty: 14 RF: 0 Continued atorvastatin 80 mg tablet 1 tab PO DAILY RF: 0 bumetanide 2 mg tablet 1 tab PO DAILY RF: 0 carvedilol 3.125 mg tablet 1 tab PO BID RF: 0 tamsulosin 0.4 mg capsule 1 cap PO DAILY RF: 0 Held warfarin 4 mg tablet 1 tab PO DAILY RF: 0 Hold Instructions: Resume on 08/23/20. Hold Coumadin today check PT INR tomorrow morning August 23 and resume Coumadin if INR below 3 No Action (DME) Freestyle Insu[employer]x Strip See Rx Instructions .ROUTE .MEDSUPPLY Qty: 10 RF: 0 (DME) lancets [FreeStyle Lancets] 28 gauge misc See Rx Instructions .ROUTE .MEDSUPPLY Qty: 100 RF: 0 Discharge Orders: Discharge Order (Routine); Ordered 08/22/20 Ordered By: Celsa Schuster Diet: diabetic diet and low salt diet Visit Report Forms: Patient Portal Discharge page Care Plan Goals: Follow blood sugars before meals and at bedtime and maintain a diary of blood sugars and follow-up with primary care physician, hold Coumadin today and check PT INR tomorrow, use triad cream to left leg and cover with DSD Health Concerns: Elevated blood sugar Plan of Treatment: Need close outpatient follow-up with primary care physician visiting nurses
[2020-08-22 16:00] VITALS: O2SAT 95
[2020-08-22 16:04] LABS: Glucose, Whole Blood 170 mg/dL (60-115)
[2020-08-25 15:14] LABS: Partial Thromboplastin Time 68.4 SEC (24.1-38.0)
== END 2020-08-22 16:10 | disposition home health service (06) | DRG 638 ==
LOC: HO.ED 17:21 → HO.S3 08-21 16:41 → HO.IMC 08-21 22:40
PROVIDERS: Physician Assistant Medical; Admitting Provider Family Medicine; Emergency Provider Emergency Medicine; PCP Internal Medicine; Visit Provider Hospitalist
DX: E10.628 Type 1 diabetes mellitus with other skin complications (principal); L03.116 Cellulitis of left lower limb; I13.0 Hypertensive heart and chronic kidney disease with heart failure and stage 1 through stage 4 chronic kidney disease, or unspecified chronic kidney disease; E44.0 Moderate protein-calorie malnutrition; I50.42 Chronic combined systolic (congestive) and diastolic (congestive) heart failure; N18.4 Chronic kidney disease, stage 4 (severe); N17.9 Acute kidney failure, unspecified; Z95.810 Presence of automatic (implantable) cardiac defibrillator; I25.10 Atherosclerotic heart disease of native coronary artery without angina pectoris; Z20.828 Contact with and (suspected) exposure to other viral communicable diseases; E10.22 Type 1 diabetes mellitus with diabetic chronic kidney disease; R79.1 Abnormal coagulation profile; E10.65 Type 1 diabetes mellitus with hyperglycemia; Z95.2 Presence of prosthetic heart valve; Z68.23 Body mass index [BMI] 23.0-23.9, adult; Z95.1 Presence of aortocoronary bypass graft; Z87.891 Personal history of nicotine dependence; Z79.4 Long term (current) use of insulin; Z79.01 Long term (current) use of anticoagulants; Z79.891 Long term (current) use of opiate analgesic; Z79.899 Other long term (current) drug therapy
CPT/HCPCS: 36415; 71045; 73590; 80048; 80076; 81001; 82009; 82947; 83036; 83605; 85025; 85610; 85730; 87040; 87071; 87086; 87147; 87186; 87205; 87635; 93005; 93971; 96365; 99285; J2543

== ENCOUNTER → 2020-08-24 11:34 | Outpatient (BNVA) | payer MEDICARE, SELFPAY | PROVIDERS: Visit Provider Internal Medicine | DX: I48.20 Chronic atrial fibrillation, unspecified (principal); Z79.01 Long term (current) use of anticoagulants; Z51.81 Encounter for therapeutic drug level monitoring | CPT/HCPCS: 85610; 99211 ==

== ENCOUNTER 2020-09-01 10:36 | Outpatient (REF) | payer MEDICARE, SELFPAY ==
[2020-09-01 11:25] LABS: Prothrombin Time 100.6 SEC (10.8-13.0)
[2020-09-01 11:28] LABS: INTERNATIONAL NORM RATIO 8.3 (0.9-1.1)
== END 2020-09-01 10:37 | disposition home or self-care (01) ==
LOC: HO.LAB 10:36
PROVIDERS: Visit Provider Internal Medicine
DX: Z79.01 Long term (current) use of anticoagulants (principal)
CPT/HCPCS: 36415; 85610; 99212

== ENCOUNTER → 2020-09-06 09:59 | Outpatient (BNVA) | payer MEDICARE, SELFPAY | PROVIDERS: PCP Internal Medicine; Visit Provider Internal Medicine | DX: I48.20 Chronic atrial fibrillation, unspecified (principal); Z95.2 Presence of prosthetic heart valve; Z51.81 Encounter for therapeutic drug level monitoring; Z79.01 Long term (current) use of anticoagulants | CPT/HCPCS: 85610; 99211 ==

== ENCOUNTER → 2020-09-13 14:16 | Outpatient (BNVA) | payer MEDICARE, SELFPAY | PROVIDERS: PCP Internal Medicine; Visit Provider Internal Medicine | DX: I48.20 Chronic atrial fibrillation, unspecified (principal); Z51.81 Encounter for therapeutic drug level monitoring; Z79.01 Long term (current) use of anticoagulants | CPT/HCPCS: Q3014 ==

== ENCOUNTER → 2020-09-20 16:14 | Outpatient (BNVA) | payer MEDICARE, SELFPAY | PROVIDERS: PCP Internal Medicine; Visit Provider Internal Medicine | DX: I48.20 Chronic atrial fibrillation, unspecified (principal); Z95.2 Presence of prosthetic heart valve; Z51.81 Encounter for therapeutic drug level monitoring; Z79.01 Long term (current) use of anticoagulants | CPT/HCPCS: Q3014 ==

== ENCOUNTER → 2020-09-27 10:52 | Outpatient (BNVA) | payer MEDICARE, SELFPAY | PROVIDERS: PCP Internal Medicine; Visit Provider Internal Medicine | DX: I48.20 Chronic atrial fibrillation, unspecified (principal); Z51.81 Encounter for therapeutic drug level monitoring; Z79.01 Long term (current) use of anticoagulants | CPT/HCPCS: Q3014 ==

== ENCOUNTER → 2020-10-04 14:51 | Outpatient (BNVA) | payer MEDICARE, SELFPAY | PROVIDERS: PCP Internal Medicine; Visit Provider Internal Medicine | DX: I48.20 Chronic atrial fibrillation, unspecified (principal); Z95.2 Presence of prosthetic heart valve; Z51.81 Encounter for therapeutic drug level monitoring; Z79.01 Long term (current) use of anticoagulants | CPT/HCPCS: Q3014 ==

== ENCOUNTER 2020-10-06 05:18 | Outpatient (REF) | payer MEDICARE, SELFPAY ==
[2020-10-06 11:15] LABS: INTERNATIONAL NORM RATIO 3.7 (0.9-1.1); Prothrombin Time 44.2 SEC (10.8-13.0)
== END 2020-10-06 05:19 | disposition home or self-care (01) ==
LOC: HO.LHD 05:18
PROVIDERS: Visit Provider Internal Medicine
DX: Z79.01 Long term (current) use of anticoagulants (principal)
CPT/HCPCS: 36415; 85610; Q3014

== ENCOUNTER → 2020-10-12 14:22 | Outpatient (BNVA) | payer MEDICARE, SELFPAY | PROVIDERS: PCP Internal Medicine; Visit Provider Internal Medicine | DX: I48.20 Chronic atrial fibrillation, unspecified (principal); Z95.2 Presence of prosthetic heart valve; Z51.81 Encounter for therapeutic drug level monitoring; Z79.01 Long term (current) use of anticoagulants | CPT/HCPCS: Q3014 ==

== ENCOUNTER → 2020-10-16 15:46 | Outpatient (BNVA) | payer MEDICARE, SELFPAY | PROVIDERS: PCP Internal Medicine; Visit Provider Internal Medicine | DX: I48.20 Chronic atrial fibrillation, unspecified (principal); Z51.81 Encounter for therapeutic drug level monitoring; Z79.01 Long term (current) use of anticoagulants | CPT/HCPCS: Q3014 ==